=== PATIENT | male | born 1965 | race Caucasian/White ===

== ENCOUNTER 2023-04-04 08:23 | Emergency (ER) | payer BC, SELFPAY ==
--- NOTE | 2023-04-04 08:30 | ED.URI ---
HPI - URI/Sore Throat General Chief Complaint: Upper Respiratory Infection Stated Complaint: Congestion Source: patient and RN notes reviewed History of Present Illness HPI Narrative: 58 yo M presents to urgent care with complaints of worsening congestion, head pressure, bilateral ear pressure, and body aches. Pt states it all started 5 days ago and is getting worse. Reports low grade fevers of 99.1 F. Denies any chest pain, SOB, N/V/D, sore throat, or ear pain. Pt has been taking an allergy pill at nighttime without relief. Pt tested himself this morning for Covid and was negative. Related Data Home Medications Medication Instructions Recorded Confirmed rosuvastatin 40 mg tablet 40 mg PO DAILY 04/04/23 04/04/23 Allergies Allergy/AdvReac Type Severity Reaction Status Date / Time No Known Allergies Allergy Unverified 04/04/23 08:41 Review of Systems Review of Systems: Pertinent positives and pertinent negatives per HPI. PMFSH Past Medical History Medical History Broken femur (~1986) Left femur Broken femur (~1993) Right femur Family History Family History Sibling Family history of malignant neoplasm of breast Mother , 71 Family history of malignant neoplasm, Onset Age: 71 Patient's mother is , Onset Age: 71 Father , 89 Family history of malignant neoplasm, Onset Age: 89 Patient's father is , Onset Age: 89 Dementia Social History Social History Social History: Patient drinks one soda on Thursday and Thursday's. Smoking status: Never smoker Alcohol intake: current Drinks per week: 4 Alcohol use details: Patient drinks 2 glasses of wine twice weekly. Substance use: never Substance use type: does not use Occupation/Education: occupation Additional occupation/education comments: Senior Patient [employer] Gender identity (if verbalized by the patient): Male Sexual Orientation (if Verbalized by the Patient): Straight or Heterosexual Comments At the time of my signature, I reviewed and agree with the nursing past medical, surgical, social, and family history. There is no relevant family history pertinent to the patient complaint. Exam Narrative: GENERAL: This is a well-nourished, well-developed patient, in no apparent distress. HEAD: normocephalic, atraumatic. EYES: Sclera clear/white. Vision is grossly intact. EARS: External ears normal, auditory canals clear and without drainage, TMs bulging with clear fluid posteriorly, no erythema, without perforation. Hearing grossly intact. NOSE: External nose normal with no obvious nasal discharge, + congestion. THROAT: Mucous membranes moist, posterior pharynx clear. NECK: Neck supple, non-tender without lymphadenopathy, masses or thyromegaly. CARDIOVASCULAR: Regular rate and rhythm without murmurs, gallops, or rubs. RESPIRATORY: Clear to auscultation. Breath sounds equal bilaterally. No wheezes, rales, or rhonchi. SKIN: warm, intact with no suspicious lesions or rash, good texture and turgor. NEURO: awake, alert, and oriented to person, place and time. There were no obvious focal neurologic abnormalities. Course Course Level of Care: Express Care Visit Vital Signs Vital signs: Vital Signs Temperature 98.1 F 04/04/23 08:35 Pulse Rate 72 04/04/23 08:35 Respiratory Rate 16 04/04/23 08:35 Blood Pressure 116/72 04/04/23 08:35 Pulse Oximetry 99 04/04/23 08:35 Oxygen Delivery Room Air 04/04/23 08:35 Temperature 98.1 F 04/04/23 08:35 Pulse Rate 72 04/04/23 08:35 Respiratory Rate 16 04/04/23 08:35 Blood Pressure 116/72 04/04/23 08:35 Pulse Oximetry 99 04/04/23 08:35 Oxygen Delivery Room Air 04/04/23 08:35 Reviewed MDM - URI/Sore Throat MDM Narrative Medical dec
[2023-04-04 08:35] VITALS: BP 116/72; PULSE 72; RESP 16; TEMP 36.7; O2SAT 99
== END 2023-04-04 08:47 | disposition home or self-care (01) ==
PROVIDERS: Emergency Provider Nurse Practitioner Family
DX: J01.90 Acute sinusitis, unspecified (principal)
CPT/HCPCS: 99213; G0463